=== PATIENT | female | born 1980 | race Hispanic/Latino ===

== ENCOUNTER 2024-09-10 16:20 | Emergency (ER) | payer SELFPAY ==
[2024-09-10 16:22] VITALS: BP 165/95; PULSE 91; RESP 16; TEMP 36.8; O2SAT 100
[2024-09-10 16:27] VITALS: BP 161/90; PULSE 98; RESP 16; TEMP 36.4; O2SAT 100
[2024-09-10 18:58] VITALS: BP 141/91; PULSE 88; RESP 16; TEMP 36.5; O2SAT 100
[2024-09-10 22:22] VITALS: BP 144/88; PULSE 85; RESP 15; O2SAT 100
--- OUTSIDE RECORDS SUMMARY | 2024-09-10 22:42 | XMS_ITS | Data Portability ---
Author Organization [facility] Address [address] [place] [address] Care Team Providers Care Obstetrician And Gynaecologist Name Role Phone LEYDA JOSE Irrigator Assessment No assessment recorded. Plan of Treatment Reminders Order Date Submit Date Provider Last Modified By Organization Details Last Modified Time Details Appointments ANY 2024 09:15A M Moses Vargas MD Not available Not available Not available ANNUAL 2024 10:30A M LARON NORIEGA Not available Not available Not available ANY 2024 09:15A Moo Vargas MD Not available Not available Not available Lab HbA1c (hemoglo bin A1c), blood 2024 025 [facility], [address] [place] [address], [address], [place], [address], 08/21/2024 10:55:35 prolacti n, serum 2024 025 [place] [facility], [address], [place], [address], 06/28/2024 10:09:59 lh + FSH, serum 2024 025 [place] [facility], [address], [place], [address], 06/28/2024 10:10:02 estradio l, serum 2024 025 [place] [facility], [address], [place], [address], 06/28/2024 10:10:00 testoste bebeto, total, serum 2024 025 [facility], [address], [place], [address], 06/28/2024 10:09:57 HbA1c (hemoglo bin A1c), blood 2024 025 [facility], [address], [place], [address], 06/28/2024 10:09:55 HCG, intact + beta subunit, quant, serum or plasma 2024 025 [facility], [address], [place], [address], 06/28/2024 10:09:58 TSH + free T4, serum 2024 025 [facility], [address], [place], [address], 06/28/2024 10:09:54 dhea-sul fate, serum 2024 025 [facility], [address], [place], [address], 06/28/2024 10:09:56 RPR (rapid plasma reagin), serum 2023 024 [facility], [address], [place], [address], 10/20/2023 07:14:54 HIV 1 + 2, meaningf ul use set 2023 024 [place] [facility], [address], [place], [address], 10/20/2023 07:14:55 HBsAg (hepatit is B surface Ag), EIA, serum 2023 024 [facility], [address], [place], [address], 10/20/2023 07:14:54 Hepatiti s C IgG Ab, qual, serum 2023 024 [facility], [address], [place], [address], 10/20/2023 07:14:52 TSH + free T4, serum 2023 024 [facility], [address], [place], [address], 10/20/2023 07:14:53 cytology report, thin prep, smear or scraping , cervical or vaginal 2023 024 [facility], [address], [place], [address], 10/24/2023 13:10:43 pregnanc y test, urine 2017 018 [email or web address] In-Office Order, Internal Use Only DO Not Attach Compendium DO Not Attach Compendium, Do Not Delete/merge, [id number] 04/22/2018 12:53:26 urinalys is, dipstick 2017 018 [email or web address] In-Office Order, Internal Use Only DO Not Attach Compendium DO Not Attach Compendium, Do Not Delete/merge, [id number] 04/22/2018 12:53:26 urinalys is, dipstick 2017 018 [email or web address] In-Office Order, Internal Use Only DO Not Attach Compendium DO Not Attach Compendium, Do Not Delete/merge, [id number] 08/27/2017 14:02:07 pregnanc y test, urine 2017 018 [email or web address] In-Office Order, Internal Use Only DO Not Attach Compendium DO Not Attach Compendium, Do Not Delete/merge, [id number] 08/27/2017 14:02:07 Referral None recorded . Procedures None recorded . Surgeries None recorded . Imaging MAMMO, screenin g, digital, bilatera l 2023 024 [facility], [address] [place], [address], 07/03/2024 11:24:42 US, pelvis - Has h/o of right salpinge ctomy and left salpingo -oophore ctomy. 2017 018 [email or web address] Not available 04/22/2018 13:21:57 Medication Orders losartan 50 mg tablet 2024 025 [id number], [address], [place], [place], [id number], 08/21/2024 10:35:59 calcium 600 mg (as carbonat e)-vitam in D3 20 mcg (800 unit) tablet 2017 018 [email or web address] [facility] [address], [address], 10/19/2023 09:42:54 multivit mccord tablet 2017 018 [email or web address] [facility] [address], [address], 10/19/2023 09:42:52 Tri-Liny ah (28) 0.18 mg(7)/0. 215 mg(7)/0. 25 mg(7)-0. 035 mg tablet 2017 018 [id number] [facility] [address], [address], 10/19/2023 09:42:49 calcium 600 mg (as carbonat e)-vitam in D3 20 mcg (800 unit) tablet 2017 018 [email or web address] [facility] [place], [address] [place] [address], [place], [address], 10/19/2023 09:42:54 multivit mccord tablet 2017 018 [email or web address] [facility] In [facility], [address] [place] [address], [place], [address], 10/19/2023 09:42:52 Patient TargetsNo targets recorded. Patient Instructions Encounter Date Encounter Id Patient Instructions Last Modified By Organization Details Last Modified Time 04/22/2018 [id number] Infecundidad: Instrucciones de cuidado - [Infertility: Care Instructions] sandie Not available 04/22/2018 13:16:34 Pt wants to have IVF next year. OCP ordered in the meantime. Pelvic US ordered for eval of right ovary. sandie Not available 04/22/2018 14:39:34 10/19/2023 [id number] A healthy lifestyle: care instructions [email or web address] Not available 10/19/2023 13:36:00 08/21/2024 [id number] A healthy lifestyle: care instructions [email or web address] Not available 08/21/2024 10:35:50 dash diet: care instructions [email or web address] Not available 08/21/2024 10:35:50 How To Lower Blood Pressure [email or web address] Not available 08/21/2024 10:35:50 Reason for Referral None Reported. Results Created Date Observation Date Name Description Value Unit Range Abnormal Flag Note LastModifiedBy Organization Detail LastModifiedTime 08/28/19 18 08/27/2017 pregn neda test, urine HCG negati ve Not Available In-Office Order Internal Use Only DO Not Attach Compendium DO Not Attach Compendium, Do Not Delete/merge, [id number] 08/27/2017 12:01:05 08/28/19 18 08/27/2017 urina lysis , dipst ick Leukocytes Negati ve Not Available In-Office Order Internal Use Only DO Not Attach Compendium DO Not Attach Compendium, Do Not Delete/merge, [id number] 08/27/2017 12:00:47 08/28/19 18 08/27/2017 urina lysis , dipst ick Nitrite negati ve Not Available In-Office Order Internal Use Only DO Not Attach Compendium DO Not Attach Compendium, Do Not Delete/merge, 08/27/2017 12:00:47 08/28/19 18 08/27/2017 urina lysis , dipst ick Urobilinogen .2 Not Available In-Of fice Order Internal Use Only DO Not Attach Compendium DO Not Attach Compendium, Do Not Delete/merge, 08/27/2017 12:00:47 08/28/19 18 08/27/2017 urina lysis , dipst ick Protein Negati ve Not Available In-Office Order Internal Use Only DO Not Attach Compendium DO Not Attach Compendium, Do Not Delete/merge, 08/27/2017 12:00:47 08/28/19 18 08/27/2017 urina lysis , dipst ick pH 5.5 Not Available In-Office Order Internal Use Only DO Not Attach Compendium DO Not Attach Compendium, Do Not Delete/merge, 08/27/2017 12:00:47 08/28/19 18 08/27/2017 urina lysis , dipst ick Blood Small Not Available In-Office Order Internal Use Only DO Not Attach Compendium DO Not Attach Compendium, Do Not Delete/merge, 08/27/2017 12:00:47 08/28/19 18 08/27/2017 urina lysis , dipst ick Specific Adelanto 1.020 Not Available In-Off ice Order Internal Use Only DO Not Attach Compendium DO Not Attach Compendium, Do Not Delete/merge, 08/27/2017 12:00:47 08/28/19 18 08/27/2017 urina lysis , dipst ick Ketone Negati ve Not Available In-Office Order Internal Use Only DO Not Attach Compendium DO Not Attach Compendium, Do Not Delete/merge, 08/27/2017 12:00:47 08/28/19 18 08/27/2017 urina lysis , dipst ick Bilirubin Negati ve Not Available In-Office Order Internal Use Only DO Not Attach Compendium DO Not Attach Compendium, Do Not Delete/merge, 08/27/2017 12:00:47 08/28/19 18 08/27/2017 urina lysis , dipst ick Glucose Negati ve Not Available In-Office Order Internal Use Only DO Not Attach Compendium DO Not Attach Compendium, Do Not Delete/merge, [id number] 08/27/2017 12:00:47 08/08/19 18 08/09/2017 HCG, intac t + beta subun it, quant , serum or plasm a HCG,beta subunit,qnt, serum 98 mIU/m L Femal e (Non- pregn ant) 0 - 5 (Post menop ausal ) 0 - 8 Femal e (Preg nant) Weeks of Gesta tion 3 6 - 71 4 10 - 750 5 743 - 2314 6 458 - 57278 7 3821 -6983 63 8 84030 -0030 71 9 281900 -5208 10 10 51954 -8627 77 12 59521 -7886 12 14 57826 - 64620 15 55264 - 90550 16 8912 - 11507 17 4360 - 68415 18 7325 - 68106 All ECLIA metho dolog y Not Available [facility] ([facility]) [address], [place], [address], 08/09/2017 06:17:08 04/22/20 18 04/22/2018 urina lysis , dipst ick Leukocytes Negati ve Not Available In-Office Order Internal Use Only DO Not Attach Compendium DO Not Attach Compendium, Do Not Delete/merge, [id number] 04/22/2018 12:17:15 04/22/20 18 04/22/2018 urina lysis , dipst ick Nitrite negati ve Not Available In-Office Order Internal Use Only DO Not Attach Compendium DO Not Attach Compendium, Do Not Delete/merge, [id number] 04/22/2018 12:17:15 04/22/20 18 04/22/2018 urina lysis , dipst ick Urobilinogen .2 Not Available In-Of fice Order Internal Use Only DO Not Attach Compendium DO Not Attach Compendium, Do Not Delete/merge, [id number] 04/22/2018 12:17:15 04/22/20 18 04/22/2018 urina lysis , dipst ick Protein Trace Not Available In-Office Order Internal Use Only DO Not Attach Compendium DO Not Attach Compendium, Do Not Delete/merge, [id number] 04/22/2018 12:17:15 04/22/20 18 04/22/2018 urina lysis , dipst ick pH 5.0 Not Available In-Office Order Internal Use Only DO Not Attach Compendium DO Not Attach Compendium, Do Not Delete/merge, [id number] 04/22/2018 12:17:15 04/22/20 18 04/22/2018 urina lysis , dipst ick Blood Large Not Available In-Office Order Internal Use Only DO Not Attach Compendium DO Not Attach Compendium, Do Not Delete/merge, [id number] 04/22/2018 12:17:15 04/22/20 18 04/22/2018 urina lysis , dipst ick Specific Adelanto 1.025 Not Available In-Off ice Order Internal Use Only DO Not Attach Compendium DO Not Attach Compendium, Do Not Delete/merge, [id number] 04/22/2018 12:17:15 04/22/20 18 04/22/2018 urina lysis , dipst ick Ketone Negati ve Not Available In-Office Order Internal Use Only DO Not Attach Compendium DO Not Attach Compendium, Do Not Delete/merge, [id number] 04/22/2018 12:17:15 04/22/20 18 04/22/2018 urina lysis , dipst ick Bilirubin Negati ve Not Available In-Office Order Internal Use Only DO Not Attach Compendium DO Not Attach Compendium, Do Not Delete/merge, [id number] 04/22/2018 12:17:15 04/22/20 18 04/22/2018 urina lysis , dipst ick Glucose Negati ve Not Available In-Office Order Internal Use Only DO Not Attach Compendium DO Not Attach Compendium, Do Not Delete/merge, [id number] 04/22/2018 12:17:15 04/22/20 18 04/22/2018 urina lysis , dipst ick Appearance Cloudy Not Available In-Offi ce Order Internal Use Only DO Not Attach Compendium DO Not Attach Compendium, Do Not Delete/merge, [id number] 04/22/2018 12:17:15 04/22/20 18 04/22/2018 urina lysis , dipst ick Color Red Not Available In-Office Order Internal Use Only DO Not Attach Compendium DO Not Attach Compendium, Do Not Delete/merge, [id number] 04/22/2018 12:17:15 04/22/20 18 04/22/2018 pregn neda test, urine HCG negati ve Not Available In-Office Order Internal Use Only DO Not Attach Compendium DO Not Attach Compendium, Do Not Delete/merge, [id number] 04/22/2018 12:17:07 10/19/19 24 10/20/2023 HCV ANTIB JIMENEZ hep C virus Ab Non Reacti ve nonrea ctive HCV antib jimenez alone does not diffe renti ate betwe en previ ously resol maxwell infec tion and activ e infec tion. Equiv ocal and React tati HCV antib jimenez resul ts shoul d be follo wed up with an HCV RNA test to suppo rt the diagn osis of activ e HCV infec tion. Not Available [facility] ([facility]) [address], [place], [address], 10/20/2023 07:14:52 10/19/19 24 10/20/2023 TSH+F REE T4 TSH 3.670 uIU/m L 0.450- 4.500 Not Available [facility] ([facility]) [address] [facility], [place], [address], 10/20/2023 07:14:53 10/19/19 24 10/20/2023 TSH+F REE T4 T4,free(dire ct) 1.15 NG/dL 0.82-1 .77 Not Available [facility] ([facility]) [address] [place], [address], 10/20/2023 07:14:53 10/19/1910/20/2023 HEMOG LOBIN A1C hemoglobin A1C 6.3 % 4.8-5. 6 above high normal Predi abete s: 5.7 - 6.4 Diabe papo: >6.4 Glyce tisha contr ol for adult s with diabe papo: <7.0 Not Available [facility] ([facility]) [address] [place], [address], 10/20/2023 07:14:53 10/19/19 24 10/20/2023 HBSAG SCREE N HBsAg screen Negati ve negati ve Not Available [facility] ([facility]) [address] [facility], [place], [address], 10/20/2023 07:14:54 10/19/19 24 10/20/2023 RPR, RFX QN RPR/C ONFIR M TP RPR Non Reacti ve nonrea ctive Not Available [facility] ([facility]) [address] [facility], [place], [address], 10/20/2023 07:14:54 10/19/19 24 10/20/2023 HIV AB/P2 4 AG WITH REFLE X HIV Ab/P24 Ag screen Non Reacti ve nonrea ctive HIV Negat tati HIV-1 /HIV- 2 antib odies and HIV-1 p24 antig en were NOT detec arianna. There is no labor atory evide nce of HIV infec tion. Not Available [facility] ([facility]) [address] [facility] [address], [place], [address], 10/20/2023 07:14:55 10/19/19 24 10/22/2023 IGP,C TNGTV ,APT HPV,R FX16/ 18,45 HPV aptima Negati ve negati ve This nucle ic acid ampli ficat ion test detec ts fourt een high- risk HPV types (16,1 8,31, 33,35 ,39,4 5,51, 52,56 ,58,5 9,66, 68) witho ut diffe renti ation . Not Available [facility] ([facility]) [address] [place], [address], 10/24/2023 13:10:43 10/19/19 24 10/22/2023 IGP,C TNGTV ,APT HPV,R FX16/ 18,45 chlamydia, nuc. acid amp Negati ve negati ve Not Available [facility] ([facility]) [address] [place], [address], 10/24/2023 13:10:43 10/19/19 24 10/22/2023 IGP,C TNGTV ,APT HPV,R FX16/ 18,45 gonococcus, nuc. acid amp Negati ve negati ve Not Available [facility] ([facility]) [address] [place], [address], 10/24/2023 13:10:43 10/19/19 24 10/22/2023 IGP,C TNGTV ,APT HPV,R FX16/ 18,45 trich vag by ELISABETH Negati ve negati ve Not Available [facility] ([facility]) [address] [place], [address], 10/24/2023 13:10:43 10/19/19 24 10/24/2023 IGP,C TNGTV ,APT HPV,R FX16/ 18,45 diagnosis: Commen t NEGAT TATI FOR INTRA EPITH ELIAL LESIO N OR BRANNON MOURA . Not Available [facility] ([facility]) [address] [place], [address], 10/24/2023 13:10:43 10/19/19 24 10/24/2023 IGP,C TNGTV ,APT HPV,R FX16/ 18,45 specimen adequacy: Commen t Satis facto ry for evalu ation . Endoc ervic al and/o r squam ous metap lasti c cells (endo cervi lissa compo nent) are prese nt. Not Available [facility] ([facility]) [address] [place], [address], 10/24/2023 13:10:43 10/19/19 24 10/24/2023 IGP,C TNGTV ,APT HPV,R FX16/ 18,45 clinician provided ICD10: Commen t R61 Z11.3 Z12.4 Not Available [facility] ([facility]) [address] [place], [address], 10/24/2023 13:10:43 10/19/19 24 10/24/2023 IGP,C TNGTV ,APT HPV,R FX16/ 18,45 performed by: Pamela menendze, Cytosukumar patino (ASCP ) Not Available [facility] ([facility]) [address] [place], [address], 10/24/2023 13:10:43 10/19/19 24 10/24/2023 IGP,C TNGTV ,APT HPV,R FX16/ 18,45 . . Not Available [facility] ([facility]) [address] [facility], [place], [address], 10/24/2023 13:10:43 10/19/19 24 10/24/2023 IGP,C TNGTV ,APT HPV,R FX16/ 18,45 note: Pamela patino The Pap smear is a scree deedee test desig ana maría to aid in the detec tion of nena ligna nt and malig nant condi tions of the uteri ne cervi x. It is not a diagn ostic proce dure and shoul d not be used as the sole means of detec ting cervi lissa cance r. Both false -posi tive and false -nega tive repor ts do occur . Not Available [facility] ([facility]) [address] [facility], [place], [address], 10/24/2023 13:10:43 10/19/19 24 10/24/2023 IGP,C TNGTV ,APT HPV,R FX16/ 18,45 test methodology: Pamela patino This liqui d based ThinP rep(R ) pap test was scree ana maría with the use of an image guide nataliia mendoza. Not Available [facility] ([facility]) [address] [place], [address], 10/24/2023 13:10:43 10/19/19 24 10/24/2023 IGP,C TNGTV ,APT HPV,R FX16/ 18,45 HPV genotype reflex Commen t Crite yu not met, HPV Genot ype not perfo rmed. Not Available [facility] ([facility]) [address] [place], [address], 10/24/2023 13:10:43 06/27/19 25 06/28/2024 TSH+F REE T4 TSH 6.920 uIU/m L 0.450- 4.500 above high normal Not Available [facility] ([facility]) [address] [place], [address], 06/28/2024 10:09:54 06/27/19 25 06/28/2024 TSH+F REE T4 T4,free(dire ct) 1.13 NG/dL 0.82-1 .77 Not Available [facility] ([facility]) [address] [place], [address], 06/28/2024 10:09:54 06/27/19 25 06/28/2024 HEMOG LOBIN A1C hemoglobin A1C 6.4 % 4.8-5. 6 above high normal Predi abete s: 5.7 - 6.4 Diabe papo: >6.4 Glyce tisha contr ol for adult s with diabe papo: <7.0 Not Available [facility] ([facility]) [address] [place], [address], 06/28/2024 10:09:55 06/27/19 25 06/28/2024 DHEA- SULFA TE DHEA-sulfate 201.0 ug/dL 57.3-2 79.2 Not Available [facility] ([facility]) [address] [place], [address], 06/28/2024 10:09:56 06/27/19 25 06/28/2024 TESTO STERO NE testosterone 37 NG/dL 4-50 Not Available [facility]) [address] [place], [address], 06/28/2024 10:09:57 06/27/19 25 06/28/2024 HCG,B ETA SUBUN IT, QNT HCG,beta subunit,qnt, serum <1 mIU/m L Femal e (Non- pregn ant) 0 - 5 (Post menop ausal ) 0 - 8 Femal e (Preg nant) Weeks of Gesta tion 3 6 - 71 4 10 - 750 5 217 - 2242 6 880 - 27714 7 0606 -7179 63 8 89970 -3468 71 9 16509 -0552 10 10 51528 -9245 77 12 36297 -2510 12 14 39060 - 58108 15 55380 - 13185 16 2009 - 77937 17 0082 - 43609 18 4381 - 78546 All ECLIA metho dolog y Not Available [facility] ([facility]) [address] [place], [address], 06/28/2024 10:09:58 06/27/19 25 06/28/2024 PROLA CTIN prolactin 10.8 NG/mL 4.8-33 .4 Not Available [facility] ([facility]) [address] [place], [address], 06/28/2024 10:09:59 06/27/19 25 06/28/2024 ESTRA DIOL estradiol 99.8 pg/mL Adult Femal e Range Folli cular phase 12.5 - 166.0 Ovula tion phase 85.8 - 498.0 Lutea l phase 43.8 - 211.0 Postm enopa usal <6.0 - 54.7 Pregn neda 1st trime ster 215.0 - >4300 .0 All ECLIA metho dolog y Not Available [facility] ([facility]) [address] [place], [address], 06/28/2024 10:10:00 06/27/19 25 06/28/2024 FSH AND LH LH 4.5 mIU/m L Adult Femal e Range Folli cular phase 2.4 - 12.6 Ovula tion phase 14.0 - 95.6 Lutea l phase 1.0 - 11.4 Postm enopa usal 7.7 - 58.5 Not Available [facility] ([facility]) [address] [place], [address], 06/28/2024 10:10:01 06/27/19 25 06/28/2024 FSH AND LH FSH 2.7 mIU/m L Adult Femal e Range Folli cular phase 3.5 - 12.5 Ovula tion phase 4.7 - 21.5 Lutea l phase 1.7 - 7.7 Postm enopa usal 25.8 - 134.8 Not Available [facility] ([facility]) [address] [place], [address], 06/28/2024 10:10:01 06/07/20 18 04/25/2018 US, henrietta romano No observ ation record ed. [facility] ([facility]) [address] [place], [address], 06/19/2018 16:30:00 07/03/19 25 07/01/2024 MAMMO , scree deedee, digit al, bilat eral No observ ation record ed. [email or web address] [address] [place], [address], 07/03/2024 15:51:01 07/10/19 25 07/10/2024 MAMMO , diagn ostic , digit al, unila teral No observ ation record ed. [facility] [place] [facility] [address] [place], [address], 07/11/2024 12:34:42 07/10/19 25 07/10/2024 , idris t, unila teral No observ ation record ed. [facility] [address] [place], [address], 07/11/2024 10:33:02 Result Notes None recorded. Problems Name Problem SNOMED Code Status Onset Date Resolution Date Notes Provider Name and Address Organization Details Recorded Time Ectopic 18443709 Active 2017 Jw aquino, [place] - [facility] 8 18:11:39 Right salpingecto my Active 2017 Jw aquino, [place] - [facility] 8 13:12:39 Left salpingecto my Completed 201404/22/2018 Jw [place] - [facility] 8 13:15:22 Salpingo-oo phorectomy Completed 201304/22/2018 LEFT Jw aqu[place], [place] - [facility] 8 13:15:01 Left salpingecto my Active 2013 Jw aquino, [place] - [facility] 8 13:15:22 Left oophorectom y Active 2014 Jw aquino, [place] - [facility] 8 13:15:32 Obesity 793943866 Active 2024 Moses Vargas MD Attn: Ethan boswell,[address] [place], [address], [facility] - [facility] 5 10:35:02 Prediabetes 952029550 Active 2024 Moses Vargas MD Attn: Ethan boswell,[address] [place], [address], [facility] 5 10:35:07 Essential hypertensio n 09473906 Active 2024 Moses Vargas MD Attn: Ethan boswell,[address] [place], [address], [facility] 5 10:34:57 Problem Notes None recorded. Procedures Surgical History Date Name Laterality Status Provider Name and Address Organization Details Recorded Time 08/03/19 18 Ectopic completed Ginny Heath [place] - [facility] 08/27/2017 12:47:23 02/09/20 18 Removal of fallopian tube completed Ginny Heath MA [facility] 08/27/2017 12:47:51 06/25/19 18 Tubal Ligation completed Nena Newman [place] [facility] 10/19/2023 09:59:27 09/03/19 16 Caesarean Section completed Lizy Stuart [place] [facility] 08/01/2017 10:16:19 06/25/19 15 left oophorectomy completed Jw Muellerman [facility] 04/22/2018 13:15:58 06/25/19 14 Removal of fallopian tube completed Jw Jose David [facility] 04/22/2018 13:13:12 Imaging Results Imaging Date Name Status LastModified by Organiz ation Details LastModified Time 04/25/2018 US, pelvis completed [facility] ([facility]) [address] [place], [address], 06/19/2018 16:30:00 07/01/2024 MAMMO, screening, digital, bilateral [email or web address] [address] [place], [address], 07/03/2024 15:51:01 07/10/2024 MAMMO, diagnostic, digital, unilateral completed [facility] [place] [facility] [address] [place], [address], 07/11/2024 12:34:42 07/10/2024 US, breast, unilateral completed [facility]) [address] [place], [address], 07/11/2024 10:33:02 Procedure Notes None recorded. Medical Equipment None Reported. Allergies No known drug allergies Medications Name Sig Start Date Stop Date Status Note LastModified by Organization Details LastModified Time multivitami n tablet Take 1 tablet every day by oral route. 10/18 completed Not Available Not Available Not Available losartan 50 mg tablet TAKE 1 TABLET BY MOUTH EVERY DAY FOR BLOOD PRESSURE active Not Available Not Available No t Available methotrexat e sodium 25 mg/mL injection solution Take 84 mg by injection route. 04/22 completed Not Available Not Available Not Available methotrexat e sodium (PF) 1 gram solution for injection Take 84 mg by injection route. 04/22 completed Not Available Not Available Not Available calcium 600 mg (as carbonate)- vitamin D3 20 mcg (800 unit) tablet Take 1 tablet twice a day by oral route. 10/18 completed Not Available Not Available Not Available Tri-Linyah (28) 0.18 mg(7)/0.215 mg(7)/0.25 mg(7)-0.035 mg tablet Take 1 tablet every day by oral route. 10/18 completed Not Available Not Available Not Available Vitals Date Recorded Body height Body mass index (BMI) Body weight Systolic blood pressure Diastolic blood pressure Provider Name and Address Organization Details Last Updated DateTime 08/27/2017 156.21 cm 27.7 kg/m2 65955.26 g 122 mm[Hg] 78 mm[Hg] Ginny Heath MA [facility] 8 12:48:16 Date Recorded Body height Body mass index (BMI) Body weight Systolic blood pressure Diastolic blood pressure Provider Name and Address Organization Details Last Updated DateTime 04/22/2018 156.21 cm 28.6 kg/m2 02011.22 g 126 mm[Hg] 80 mm[Hg] Tessy Obando MA [facility] 8 12:19:05 Date Recorded Body height Body mass index (BMI) Body weight Heart rate Systolic blood pressure Diastolic blood pressure Provider Name and Address Organization Details Last Updated DateTime 4 157.48 cm 30 kg/m2 73893.1 5 g 71 /min 140 mm[Hg] 91 mm[Hg] Nena Newman MA [facility] 4 10:08:48 Date Recorded Body height Body mass index (BMI) Body weight Heart rate Systolic blood pressure Diastolic blood pressure Provider Name and Address Organization Details Last Updated DateTime 5 157.48 cm 30.8 kg/m2 26339.2 2 g 81 /min 150 mm[Hg] 86 mm[Hg] Nena Newman MA [facility] 5 09:55:59 Date Recorded Body height Body mass index (BMI) Body weight Oxygen saturation Oxygen saturation in Arterial blood by Pulse oximetry Body temperature Heart rate Systolic blood pressure Diastolic blood pressure Provider Name and Address Organization Details Last Updated DateTime 5 157.48 cm 30.8 kg/m2 34603.5 7 g 99 % 99 % 97.7 [degF] 92 /min 164 mm[Hg] 96 mm[Hg] Cristel Lopez LPN [facility] 5 10:12:45 Social History Question Answer Notes LastModified by Organizat ion Details LastModified Time Tobacco Smoking Status Current Some Day Smoker Lizy Stuart MA [facility], [facility] 08/01/2017 10:13:33 Do You Have An Advance Directive? No Information not available 08/01/2017 What Is Your Level Of Alcohol Consumption? None Information not available 08/01/2017 If You Are , What Was Your Level Of Alcohol Consumption Prior To ? None Information not available 08/01/2017 Are You Blind Or Do You Have Difficulty Seeing? No Information not available 10/19/2023 What Is Your Level Of Caffeine Consumption? Moderate Information not available 10/19/2023 How Much Tobacco Do You Chew? None Information not available 08/01/2017 Are You Currently Employed? No Information not available 08/01/2017 Are You Deaf Or Do You Have Serious Difficulty Hearing? No Information not available 10/19/2023 What Type Of Diet Are You Following? REGULAR Information not available 08/01/2017 Which Illicit Or Recreational Drugs Have You Used? None Information not available 08/01/2017 Do You Or Have You Ever Used E-cigarettes Or Vape? Never Used Electronic Cigarettes Information not available 10/19/2023 Education 12 Information no t available 08/01/2017 What Is Your Occupation? Unemployed Information not available 08/01/2017 Illicit Drugs Pre- None Information not available 08/01/2017 Live Alone Or With Others? With Others Information not available 08/01/2017 Marital Status Domestic Partner Information not available 08/01/2017 What Was The Date Of Your Most Recent Tobacco Screening? 06/27/2024 Information not available 06/27/2024 How Many Children Do You Have? 1 Information not available 08/01/2017 Performs Monthly Self-breast Exam? No [email or web address] Information no t available 08/27/2017 Do You Use Protection During Sex? No Information not available 08/01/2017 What Is Your Relationship Status? Information not available 10/19/2023 Do You Use Your Seat Belt Or Car Seat Routinely? Yes Information not available 10/19/2023 Seat Belts Used Routinely Yes Information not available 08/01/2017 Are You Sexually Active? Yes Information not available 08/01/2017 Do You Have Smoke And Carbon Monoxide Detectors In Your Home? Yes Information not available 10/19/2023 Are You Passively Exposed To Smoke? Yes Information no t available 10/19/2023 Do You Or Have You Ever Used Smokeless Tobacco? Never Used Smokeless Tobacco Information not available 10/19/2023 Smoking Pre- Yes Information not available 08/01/2017 General Stress Level High Information not available 08/01/2017 Do You Use Any Illicit Or Recreational Drugs? No Information not available 10/19/2023 Do You Use Sunscreen Routinely? No Information not available 08/01/2017 Has Tobacco Cessation Counseling Been Provided? Yes Information not available 10/19/2023 On What Date Was Tobacco Cessation Counseling Provided? 06/27/2024 Information not available 06/27/2024 Do You Or Have You Ever Used Any Other Forms Of Tobacco Or Nicotine? No Information not available 06/27/2024 Sex: Female Functional Status Question Answer Note LastModified by Organizat ion Details LastModified Time Are you able to care for yourself? Yes Information not available 10/19/2023 What is your exercise level? Occasional Information not available 10/19/2023 Mental Status None recorded. Family History Relationship Description Onset Age of this Age Resolved Age Notes LastModified by Organization Details LastModified Time Father No current problems or disability Not available 12/2017 10:13:21 Mother Malignant tumor of cervix [email or web address] Not available 10/18 10:04:24 Medical History Condition Response Other N High Blood Pressure N Breast Cancer N Thyroid Problems N Kidney or Bladder Problems N GI Problems N Depression N Blood Clots N Lung Disease N Acne N Breast Problem N Eating Disorder N Anemia N Anesthesia Complications N Headaches/Migraines N Anxiety Disorder N Diabetes Y Ovarian Cancer N Muscle, Joint, or Bone Problems N Blood Transfusions N Seizures/Epilepsy N Polyps N Infertility N Acid Reflux (GERD) N Cancer N Abuse/Domestic Violence N Asthma N Endometriosis N High Cholesterol N Hepatitis N Liver Disease N Heart Disease N Pre-Eclampsia N Osteoporosis N Gynecological History Statement/Question Response Abnormal Pap N Flow Moderate Date of LMP 06/12/2024 HPV Vaccine N Duration of Flow (days) 4 Current Control Method Tubal Ligat ion Age at Menarche 13 Age at First Child 36 Sexually Active? Y Menses Monthly Y Date of Last Pap Smear LMP Approximate Obstetrics History GPAL:G 2 P 0 1 1 1 Type Value Multiple Births 0 Full Term 0 Induced 0 Spontaneous 0 Premature 1 Living 1 Ectopics 1 Total 2 Immunizations Vaccine Type Date Status Note Provider Nam e and Address Organization Details Recorded Time Tdap 05/20/2018 completed Moses Vargas MD Attn: [address] [place], [address], [facility] 08/21/2024 10:35:25 Influenza, split virus, quadrivalent, PF 05/20/2018 completed Moses Vargas MD Attn: [address] [place], [address], [facility] 08/21/2024 10:35:25 Past Encounters Encounter ID Performer Location Encounter Start Date Encounter Closed Date Diagnosis/Indication Diagnosis SNOMED-CT Code Diagnosis ICD10 Code Diagnosis Note [id number] Jw SolimanJose Davidfam Benitez ([facility]) [address] [place] [address] 08/01/2017 09:58:04 08/01/2017 10:49:50 Ectopic 83184840 O00.90 s/p MTX 1st dose 07/25 [id number] Jw SolimanJose Davidfam Benitez ([facility]) [address] [place] [address] 08/27/2017 10:56:31 08/27/2017 12:46:45 Postoperative care 771562815 Z48.89 Family myrna nning surveillance 505299326 Z30.09 [id number] [facility] [address] [place] [address] 04/22/2018 11:47:51 2018 11:59:18 Family planning surveillance 759310161 Z30.09 Pt wants to have IVF next year. Has h/o of right salpingect mago and left salpingo-o ophorectom y. Irregular periods 786586 07 N92.6 Female infertility 61998 08 N97.9 [id number] LARON NORIEGA [facility] ([facility]) [address] [place] [address] 10/19/2023 09:33:26 10/22/2023 14:29:40 Gynecologic examination 35194875 Z01.419 Normal gynecologi c exam today.Cerv ical cancer screening: Last Pap uncertain. Updated todayBreaustin t cancer screening: Reviewed recommenda tions for initiation at age 40 with annual screening. Discussed SBEColonos copy: n/aSTI screening: cultures, treat as needed. Safe sex practices discussed. Contracept ion: R salpingect mago, L salpingo-o ophorectom yDiet/exer cise: Counseled regarding importance of physical activity, healthy diet and appropriat e calcium intake.RTC in 1yr Screening for malignant neoplasm of cervix 847117965 Z12.4 -Uncertain last pap. [facility] ll [facility].-D enies known hx abnormal-C ervix grossly normal-Cot esting updated today Screening for malignant neoplasm of breast 832539052 Z12.39 -No breast complaints . No FMHx breast cancer-CBE unremarkab le-Mammogr am order provided. Pt is self pay. Informatio n for IBCCP provided. Venereal d isease screening 119388071 Z11.3 -Will treat as indicated. Night sweats 10767809 R6 1 -Somewhat irregular menses with intermitte nt night sweats. Denies impact on daily living. Denies insomnia.- Reports hx ?thyroid disease in - Discussed likely due to perimenopa use given age, changes in bleeding, and night sweats-Esteban l check TSH due to reported hx. Obesity 105649539 E66.9 BMI 30 [id number] LARON NORIEGA [facility] ([facility]) [address] [place] [address] 06/27/2024 09:37:23 07/01/2024 12:37:37 Irregular periods 63689555 N92.6 -LMP 06/12/24. No menses x 4 months prior to this. Denies menorrhagi a, dysmenorrh ea, prolonged bleeding.- Hx of mildly irregular menses (would miss 1-2 months intermitte ntly) starting ~1 year ago.-C/o night sweats at last visit 09/2023. Symptoms have improved since that time, but continues to notice occassiona l hot flash. Denies vaginal dryness.-L abs 09/2023--A1 c 6.3, TSH/T4 wnl-Suspec t likely perimenopa use given age, VSM, and irregular menses. Endo labs order to r/o alternativ e etiology.- Discussed lifestyle changes including diet changes and regular exercise. Discussed option to start OCP for menstrual regulation , pt declines at this time.-Pt to RTC if develops menorrhagi a, intermenst rual bleeding, or prolonged bleeding. [id number] Moses Vargas MD [facility] ([facility]) [address] [place] [address] 08/21/2024 09:56:50 08/22/2024 15:44:45 Essential hypertension 73803806 I10 Obesity 712526203 E66.9 Prediabetes 982110664 R7 3.03 Health Concerns Section Related Observation LastModified by Organization Detai ls LastModified Time None Recorded Concern Status LastModified by Organization Details LastModified Time None Recorded Advance Directives Directive N: Payers Encounter Date Sequence Insurance Name Policy Number Policy Cavazos Covered Member ID Cavazos Member ID Guarantor Name 08/27/2017 1 *SELF PAY* Felipe Cheung 04/22/2018 1 *SELF PAY* Felipe Chenug 10/19/2023 1 *SELF PAY* Felipe Cheung 06/27/2024 SLIDING FEE SCHEDULE - DISCOUNT Elli Cheung Notes Date Note Type Note Provider Name and Address Organization Details Recorded Time 08/27/2017 text/html Post-OpReported bypatient.Associated Symptoms:incision healing well; no fatigue; normal appetite; normal bowel function; no constipation; no nausea; no emesis; pain improving; no pain; no fever; no bleeding; no lower extremity edema/pain; no dysuria/urinary symptoms 37 yo F post op right salpingectomy for ruptured ectopic . No complaints at this time. BLADE Art 08/27/2017 14:11:58 04/22/2018 text/html Abnormal BleedingReported bypatient.Associated Symptoms:no dysmenorrhea; no pelvic pain; no abdominal pain; no dyspareunia; no fatigue; no dizziness; no anemia/iron supplements; no shortness of breath; no CP/palpitations; no bloating; no change in bowel function; no urinary symptoms; no PMS; no vaginal discharge; no vaginal itching/irritation 37 yo F here for c/o irregular menses this month. Previously has had regular cycles. Has h/o of right salpingectomy and left salpingo-oophorectomy. Started period on 03/31/2018-04/07/2018 then started again on 04/19/2018 and is still on. Pt is trying to conceive. BLADE Art 04/22/2018 18:21:31 10/19/2023 text/html Annual GYNReport ed bypatient.Menstrual cycle:Missed most recent period Urinary symptoms:No hematuria; No incontinence Vulva:No genital lesion Vagina:Normal vaginal discharge Breast:No breast pain; No breast lump; No nipple discharge; No FMHX breast cancer Sexual complaints:No sexual complaints; No pain during intercourse; Normal libido Menopausal Symptoms:Normal vaginal lubrication Preventive measures:Encourage self breast examination; Encourage regular exercise; Encourage no tobacco use; Encourage regular mammograms starting age [age] yo presents to establish care. Hx R salpingectomy due to ruptured ectopic and L salpingo-oophorectomy. Uncertain of last pap, denies known hx abnormal. Was previously seen by Dr Main and was then referred to [facility]. Pt reports missed menses in July. Normal menses in August, no menses yet in September. Reports intermittent night sweats. Inquires about menopause. Reports hx of ?thyroid disease in previous . Denies any medications at that time. Reports hx GDM and follow up A1c was in pre-DM range. States she had not had A1c checked in awhile. LARON NORIEGA Attn: [address] [place], [address], [facility] 10/19/2023 13:36:41 06/27/2024 text/html 44 yo pr esents for irregular menses. LMP 06/12/24, however, reports no menses x 4 months prior to this. At last visit in 09/2023, discussed intermittent hot flashes/night sweats and mildly irregular menses (would intermittently miss 1-2 months). Pt reports improvement in these symptoms but still occasionally notices. Denies vaginal dryness. Denies menorrhagia, dysmenorrhea, prolonged bleeding. Menses last 3-4 days when present. LARON NORIEGA Attn: [address] [facility], [place], [address], [place] [facility] 06/27/2024 12:18:32 08/21/2024 text/html Here to roldan oliver, noted to be prediabetic at her last PHYSICIAN SPECIALIST exam. No complaints. Moses Vargas MD Attn: [address] [place], [address], [place] [facility] 08/21/2024 10:56:02 OBGyn Episode Ob Episode Information Episode Created Date Number of Fetuses Patient Bloodtype Patient rh Status Prepregnancy Weight lbs Domestic Partner Domestic Partner Phone Father Name Rolled Gold Plater Status 08/28/19 18 1 CLOSED Fetus Data First Name Last Name Admitted to NICU Weight (g) Sex Living Outcome Pediatric Complications Fetus ID Race Codes Race Delivery Type Ectopic [id number] Javier Calculation Initial Javier Date Initial Exam Date Initial Exam Provider Initial Ultrasound Date Last Menstrual Period Date Ultra Sound Weeks Gestation 0 Eighteen To Twenty Week Javier Update Ultra Sound Date Fundal Height At Umbil Quickening Date Ultra Sound Latest Weeks Gestation Final Javier Confirmed By Final Javier Confirmed Date Final Javier Date Ultra Sound Latest Days Gestation 0 0 Menstrual History Last Menstrual Date Menses Monthly On Bcp Conception Prior Menses Frequency Hcg Plus Date Menarche Onset Age Delivery Information Delivery Date Delivery Type Labor Anesthesia Weeks Gestation Incision Type Labor Labor Length Hrs Delivered By Post Complications Tubal Sterilization Discharge Date Comments 8 Discharge Information Feeding Method Contraceptive Method Maternal HG B and HCT Levels Ob Episode Information Episode Created Date Number of Fetuses Patient Bloodtype Patient rh Status Prepregnancy Weight lbs Domestic Partner Domestic Partner Phone Father Name Rolled Gold Plater Status 08/01/19 18 1 DELETED Javier Calculation Initial Javier Date Initial Exam Date Initial Exam Provider Initial Ultrasound Date Last Menstrual Period Date Ultra Sound Weeks Gestation 0 Eighteen To Twenty Week Javier Update Ultra Sound Date Fundal Height At Umbil Quickening Date Ultra Sound Latest Weeks Gestation Final Javier Confirmed By Final Jvaier Confirmed Date Final Javier Date Ultra Sound Latest Days Gestation 0 0 Menstrual History Last Menstrual Date Menses Monthly On Bcp Conception Prior Menses Frequency Hcg Plus Date Menarche Onset Age Delivery Information Delivery Date Delivery Type Labor Anesthesia Weeks Gestation Incision Type Labor Labor Length Hrs Delivered By Post Complications Tubal Sterilization Discharge Date Comments 8 Discharge Information Feeding Method Contraceptive Method Maternal HG B and HCT Levels Ob Episode Information Episode Created Date Number of Fetuses Patient Bloodtype Patient rh Status Prepregnancy Weight lbs Domestic Partner Domestic Partner Phone Father Name Rolled Gold Plater Status 08/01/19 18 1 DELETED Javier Calculation Initial Javier Date Initial Exam Date Initial Exam Provider Initial Ultrasound Date Last Menstrual Period Date Ultra Sound Weeks Gestation 0 Eighteen To Twenty Week Javier Update Ultra Sound Date Fundal Height At Umbil Quickening Date Ultra Sound Latest Weeks Gestation Final Javier Confirmed By Final Javier Confirmed Date Final Javier Date Ultra Sound Latest Days Gestation 0 0 Menstrual History Last Menstrual Date Menses Monthly On Bcp Conception Prior Menses Frequency Hcg Plus Date Menarche Onset Age Delivery Information Delivery Date Delivery Type Labor Anesthesia Weeks Gestation Incision Type Labor Labor Length Hrs Delivered By Post Complications Tubal Sterilization Discharge Date Comments 6 Regional-Sp inal 32 baby gir l born @ [place], [place], -a Discharge Information Feeding Method Contraceptive Method Maternal HG B and HCT Levels Ob Episode Information Episode Created Date Number of Fetuses Patient Bloodtype Patient rh Status Prepregnancy Weight lbs Domestic Partner Domestic Partner Phone Father Name Rolled Gold Plater Status 08/28/19 18 1 CLOSED Fetus Data First Name Last Name Admitted to NICU Weight (g) Sex Living Outcome Pediatric Complications Fetus ID Race Codes Race Delivery Type 1899.18 [id number] F Prematur e [id number] Primary Javier Calculation Initial Javier Date Initial Exam Date Initial Exam Provider Initial Ultrasound Date Last Menstrual Period Date Ultra Sound Weeks Gestation 0 Eighteen To Twenty Week Javier Update Ultra Sound Date Fundal Height At Umbil Quickening Date Ultra Sound Latest Weeks Gestation Final Javier Confirmed By Final Javier Confirmed Date Final Javier Date Ultra Sound Latest Days Gestation 0 0 Menstrual History Last Menstrual Date Menses Monthly On Bcp Conception Prior Menses Frequency Hcg Plus Date Menarche Onset Age Delivery Information Delivery Date Delivery Type Labor Anesthesia Weeks Gestation Incision Type Labor Labor Length Hrs Delivered By Post Complications Tubal Sterilization Discharge Date Comments 6 32 Discharge Information Feeding Method Contraceptive Method Maternal HG B and HCT Levels
--- NOTE | 2024-09-10 23:13 | ED.GENADULT ---
HPI - General Adult General Chief complaint: Recheck/Abnormal Lab/Rx Stated complaint: low blood pressure, dizzy Time Seen by Provider: 09/10/24 22:16 History of Present Illness HPI narrative: Patient is a 44-year-old female presents emergency department with chief complaint of possible hypertension. Patient reports that she has been feeling some lightheadedness and has had were her blood pressures have been running in the 110s on a blood pressure cuff that she had at home patient states she has little bit of a headache with this reports no focal deficits denies chest pain reports no other symptoms. The patient reports that she does not have a primary care provider has not seen a primary Related Data Allergies Allergy/AdvReac Type Severity Reaction Status Date / Time No Known Allergies Allergy Verified 09/10/24 16:24 Review of Systems Review of Systems: A 10 system review of systems was completed on the patient and is negative except for what is stated in the HPI. Nursing and ancillary documentation was reviewed. Exam Narrative: GENERAL: Well-appearing, well-nourished, and in no acute distress. HEAD: Normocephalic, atraumatic. EYES: PERRLA and EOMI. ENT: Nares clear, no rhinorrhea or epistaxis. Mucous membranes moist. NECK: Supple. CHEST: Clear to auscultation. No respiratory distress. HEART: Regular rate and rhythm. No murmur heard. Normal peripheral pulses. ABDOMEN: Soft, nontender, nondistended, normal active bowel sounds. EXTREMITIES: Normal range of motion. No edema. SKIN: Warm, dry, no rash. NEURO: No focal deficits. Alert and oriented x3. PSYCH: Normal mood and affect. Course Vital Signs Vital signs: Vital Signs Temperature 36.8 C 09/10/24 16:22 Pulse Rate 91 09/10/24 16:22 Respiratory Rate 16 09/10/24 16:22 Blood Pressure 165/95 H 09/10/24 16:22 Pulse Oximetry 100 09/10/24 16:22 Temperature 36.5 C 09/10/24 18:58 Pulse Rate 85 09/10/24 22:22 Respiratory Rate 15 09/10/24 22:22 Blood Pressure 144/88 H 09/10/24 22:22 Pulse Oximetry 100 09/10/24 22:22 Medical Decision Making MDM Narrative Medical decision making narrative: Differential diagnosis includes hypertensive urgency, hypertension, The patient is currently awake alert in no acute distress patient shows no signs of acute hypertensive crisis blood pressure is 144/88 Given this the patient will be discharged home to follow-up with a primary care provider Vital Signs Vital Signs: Vital Signs Temperature 36.8 C 09/10/24 16:22 Pulse Rate 91 09/10/24 16:22 Respiratory Rate 16 09/10/24 16:22 Blood Pressure 165/95 H 09/10/24 16:22 Pulse Oximetry 100 09/10/24 16:22 Temperature 36.5 C 09/10/24 18:58 Pulse Rate 85 09/10/24 22:22 Respiratory Rate 15 09/10/24 22:22 Blood Pressure 144/88 H 09/10/24 22:22 Pulse Oximetry 100 09/10/24 22:22 Discharge Plan Discharge Clinical Impression: Hypertension Patient Disposition: Home, Self-Care Condition: Stable Instructions: Antibiotic Form, Hypertension (ED) Additional Instructions: Please follow-up with primary care as you will need further evaluation as an outpatient and may eventually need to be started on blood pressure medicines Patient Language: [place] Follow-up/Referrals: Maria Dolores Talley MD [Physician] - PHYSICIAN,AUTOMOTIVE SALES EXECUTIVE [Primary Care Provider] - Time of Disposition: 23:16
[2024-09-10 23:25] VITALS: BP 140/86; PULSE 82; RESP 15; O2SAT 100
== END 2024-09-10 23:26 | disposition home or self-care (01) ==
PROVIDERS: Emergency Provider Emergency Medicine
DX: I10 Essential (primary) hypertension (principal)
CPT/HCPCS: 99281